=== PATIENT | female | born 1950 | race Caucasian/White ===

== ENCOUNTER 2024-04-28 12:52 | Emergency (ER) | payer OTHER ==
[~2024-04-28] VITALS: Ht 162.6 cm; Wt 57.8 kg
[2024-04-28 13:38] LABS: Basophils # (auto) 0 10 ^3/uL (0-0.2); Basophils % (auto) 0.3 % (0.0-2.0); Eosinophils # (auto) 0 10 ^3/uL (0-0.8); Eosinophils % (auto) 0.2 % (0.0-7.0); Hematocrit 39.4 % (36.0-46.0); Hemoglobin 12.5 g/dL (12.2-16.2); Lymphocytes # (auto) 1.9 10 ^3/uL (0.4-5.4); Lymphocytes % (auto) 23.5 % (10.0-50.0); Mean Corpuscular Hemoglobin 29.3 pg (28.0-32.0); Mean Corpuscular Hgb Conc. 31.7 g/dL (32.0-36.0); Mean Corpuscular Volume 92.5 fL (80.0-100.0); Monocytes # (auto) 0.6 10 ^3/uL (0-1.3); Monocytes % (auto) 6.7 % (0.0-12.0); Neutrophils # (auto) 5.7 10 ^3/uL (1.6-8.6); Neutrophils % (auto) 69.3 % (37.0-80.0); Nucleated Red Blood Cells % 0.3 %; Platelet Count (auto) 373 10^3/uL (140-450); Red Blood Cells 4.26 10^6/uL (4.0-5.20); Red Cell Distribution Width 20.5 % (11.8-14.3); White Blood Cell 8.3 10^3/uL (4.4-10.8)
[2024-04-28 13:53] LABS: Chloride 101 mmol/L (98-107); Potassium 4.5 mmol/L (3.5-5.1); Sodium 136 mmol/L (136-145)
[2024-04-28 13:54] LABS: Anion Gap 9 (5-15); Calcium 9.7 mg/dL (8.7-10.4); Carbon Dioxide 26 mmol/L (20-31)
[2024-04-28 13:59] LABS: BUN/Creatinine Ratio 24.4 (10.0-20.0); Blood Urea Nitrogen 21 mg/dL (9-23)
[2024-04-28 14:04] LABS: Glucose 118 mg/dL (74-106)
--- NOTE | 2024-04-28 14:08 | DVH ---
XY CHEST PORTABLE, HISTORY: sob COMPARISON: None None TECHNICAL DATA: 1 view of the chest was obtained. FINDINGS: Lines and tubes: There is a right chest portacatheter. Cardiomediastinal silhouette: Enlarged Pulmonary vasculature: normal Lung expansion: normal Lung airspace: Left upper lobe lung mass. Lung interstitium: normal Pleura: Small left pleural effusion. Pneumothorax: no Bones: Unremarkable Other: no IMPRESSION: Left upper lobe lung mass. Small left pleural effusion.
--- NOTE | 2024-04-28 14:36 | ECG ---
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
--- NOTE | 2024-04-28 15:11 | ED.PDOC ---
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 Hassan. Pt states she was advised she has fluid around her heart was told to come to the ED for further evaluation. Pt states she has been having increasing shortness of breath with noted clear and yellow phlegm and states she has been having left lower chest pain when taking deep breaths with associated pain radiating to her back. Pt is receiving immunotherapy at [facility] which she states was started 4 weeks ago. Pt states she had an adverse reaction to the immunotherapy, so treatment was temporarily stopped. Here patient is complaining of left lower chest pain radiating to the left lateral chest and back, shortness breath of breath and occasional retrosternal chest heaviness. She denies diaphoresis, palpitations, nausea, vomiting, fever, chills, dysuria, hematuria, headache or dizziness. Pt in the ED, has noted heart rate of 111 but otherwise has stable vitals with noted 02 sat of 97% on room air, temp of 98.0F, and BP of 115/81. Pt otherwise denies any other symptoms at this time. 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 COUNTRY History: Unknown Family History Family History: Reviewed,noncontributory to illness Social History Smoker: Non-Smoker Alcohol: Denies ETOH Use Drugs: Denies Drug Use Lives In: Home Constitutional: denies: chills, diaphoresis, fatigue, fever, malaise, sweats, weakness, others EENTM: denies: blurred vision, double vision, ear bleeding, ear discharge, ear drainage, ear pain, ear ringing, eye pain, eye redness, hearing loss, mouth pain, mouth swelling, nasal discharge, nose bleeding, nose congestion, nose pain, photophobia, tearing, throat pain, throat swelling, voice changes, others Respiratory: reports: SOB at rest, shortness of breath, SOB with excertion; denies: cough, hemoptysis, orthopnea, stridor, wheezing, others Cardiovascular: denies: chest pain, dizzy spells, diaphoresis, Dyspnea on exertion, edema, irregular heart beat, left arm pain, lightheadedness, palpitations, PND, syncope, others Gastrointestinal: denies: abdomen distended, abdominal pain, blood streaked bowels, constipated, diarrhea, dysphagia, difficulty swallowing, hematemesis, melena, nausea, poor appetite, poor fluid intake, rectal bleeding, rectal pain, vomiting, others Genitourinary: denies: abnormal vagina bleeding, burning, dyspareunia, dysuria, flank pain, frequency, hematuria, incontinence, pain, , vagina discharge, urgency, others Neurological: denies: dizziness, fainting, headache, left sided numbness, left sided weakness, numbness, paresthesia, pre-existing deficit, right sided numbness, right sided weakness, seizure, speech problems, tingling, tremors, weakness, others Musculoskeletal: reports: back pain; denies: gout, joint pain, joint swelling, muscle pain, muscle stiffness, neck pain, others Integumetry: denies: bruises, change in color, change in hair/nails, dryness, laceration, lesions, lumps, rash, wounds, others Allergic/Immunocompromised: denies: Difficulty Healing, Frequent Infections, Hives, Itching, others Hematologic/Lymphatic: denies: anemia, blood clots, easy bleeding, easy bruising, swollen glands, others Endocrine: denies: excessive hunger, excessive sweating, excessive thirst, excessive urination, flushing, intolerance to cold, intolerance to heat, unexplained weight gain, unexplained weight loss, others Psychiatric: denies: anxiety, bipolar disorder, depression, hopeless, panic disorder, schizophrenia, sleepless, suicidal, others All Other Systems: Reviewed and Negative Physical Exam General Appearance: No Apparent Distress, Thin, Other (Chronically ill- appearing) HEENT: Other (Pupils symmetric, moist mucous membranes) Neck: Full Range of Motion, Normal Inspection Respiratory: Chest Non-Tender, Decreased Breath Sounds (Left lung), No Accessory Muscle Use, No Respiratory Distress Cardiovascular: No Edema, No JVD, Regular Rate/Rhythm Breast Exam: Deferred Gastrointestinal: Non Tender, Soft Genitalia: Deferred Pelvic: Deferred Rectal: Deferred Extremities: Normal inspection, Normal range of motion, Non-tender, Pedal edema (Trace) Neurologic: Alert (Oriented x4), Normal Affect, Normal Mood, Other (Ambulatory without difficulty, no gross focal deficit) Cerebellar Function: NOT DONE Reflexes: NOT DONE Skin: Dry, Pallor, Warm Lymphatic: NOT DONE EKG EKG : Comments Sinus tach, rate 122, normal intervals, normal axis, low-voltage QRS in precordial leads, diffuse T-wave inversion with ST depression Was a procedure done? Was a procedure done?: No Differential Dx Differential Diagnosis: Bronchitis, Cardiogenic Shock, CHF, COPD, Dysrhythmia, Myocardial infarction, Pneumonia, Pneumothorax, Pulmonary Embolism, Respiratory Distress, Pharyngitis, URI Comments Pericardial effusion, pericarditis, ACS, WI, arrhythmia, pleural effusion, enlarging lung mass, sepsis, among others X-Ray, Labs, Meds, VS Vital Signs Date Time Temp Pulse Resp B/P (MAP) Pulse Ox O2 Delivery O2 Flow Rate FiO2 04/28/24 18:05 97 Room Air* 0 21 04/28/24 18:05 20 97 Room Air* 0 21 04/28/24 16:15 97.4 106 18 121/77 (92) 98 97.4 04/28/24 15:07 98.0 111 16 115/81 (92) 97 04/28/24 14:35 122 Lab Test 04/28/24 14:26 04/28/24 13:20 Range/Units Troponin I High Sensitivity 5 6 </=34 ng/L White Blood Count 8.3 4.4-10.8 10^3/uL Red Blood Count 4.26 4.0-5.20 10^6/uL Hemoglobin 12.5 12.2-16.2 g/dL Hematocrit 39.4 36.0-46.0 % Mean Corpuscular Volume 92.5 80.0-100.0 fL Mean Corpuscular Hemoglobin 29.3 28.0-32.0 pg Mean Corpuscular Hemoglobin Concent 31.7 L 32.0-36.0 g/dL Red Cell Distribution Width 20.5 H 11.8-14.3 % Platelet Count 373 140-450 10^3/uL Mean Platelet Volume 7.6 6.9-10.8 fL Neutrophils (%) (Auto) 69.3 37.0-80.0 % Lymphocytes (%) (Auto) 23.5 10.0-50.0 % Monocytes (%) (Auto) 6.7 0.0-12.0 % Eosinophils (%) (Auto) 0.2 0.0-7.0 % Basophils (%) (Auto) 0.3 0.0-2.0 % Neutrophils # (Auto) 5.7 1.6-8.6 10 ^3/uL Lymphocytes # (Auto) 1.9 0.4-5.4 10 ^3/uL Monocytes # (Auto) 0.6 0-1.3 10 ^3/uL Eosinophils # (Auto) 0 0-0.8 10 ^3/uL Basophils # (Auto) 0 0-0.2 10 ^3/uL Nucleated Red Blood Cells 0.3 % Sodium Level 136 136-145 mmol/L Potassium Level 4.5 3.5-5.1 mmol/L Chloride Level 101 98-107 mmol/L Carbon Dioxide Level 26 20-31 mmol/L Anion Gap 9 5-15 Blood Urea Nitrogen 21 9-23 mg/dL Creatinine 0.86 0.550-1.02 mg/dL Glomerular Filtration Rate Calc 71 >90 mL/min BUN/Creatinine Ratio 24.4 H 10.0-20.0 Serum Glucose 118 H 74-106 mg/dL Calcium Level 9.7 8.7-10.4 mg/dL B-Type Natriuretic Peptide 124.15 0-100 pg/mL Current Medications Medications (Trade) Dose Ordered Sig/Britton Route Start Time Stop Time Status Last Admin Albuterol (Ventolin Medneb) 5 mg ONCE ONCE NEB 04/28/24 14:30 04/28/24 15:23 DC 04/28/24 17:54 Ipratropium [place] (Atrovent Medneb) 0.5 mg ONCE ONCE NEB 04/28/24 14:30 04/28/24 15:23 DC 04/28/24 17:54 Sodium Chloride 1,000 ml @ 75 mls/hr [id number] ONCE IV 04/28/24 17:00 04/29/24 06:19 04/28/24 17:[address] [address] Ph: [phone] DIAGNOSTIC IMAGING Diagnostic Imaging Report : [id number] Signed PATIENT: SUKUMAR DANG ACCT: [id number] UNIT: [id number] : 1950 LOC: ER ROOM / BED: / AGE / SEX: 73 / F ADM STATUS: REG ER SERVICE 1302 ORDERING PHYSICIAN: FANNY CHRISTIANSON MD PROCEDURE(s): CXRP - CHEST PORTABLE REASON: sob ORDER NUMBER(s): [id number], ACCESSION NUMBER(s): [id number] XY CHEST PORTABLE, HISTORY: sob COMPARISON: None None TECHNICAL DATA: 1 view of the chest was obtained. FINDINGS: Lines and tubes: There is a right chest portacatheter. Cardiomediastinal silhouette: Enlarged Pulmonary vasculature: normal Lung expansion: normal Lung airspace: Left upper lobe lung mass. Lung interstitium: normal Pleura: Small left pleural effusion. Pneumothorax: no Bones: Unremarkable Other: no IMPRESSION: Left upper lobe lung mass. Small left pleural effusion. ATED BY: BRANDIN BETANCOURT MD DICTATED DATE/TIME: 04/28/241405 SIGNED BY: BRANDIN BETANCOURT MD SIGNED DATE/TIME: 04/28/24 140 CC: PROCEDURE(s): ECIDC - ECHO 2D MODE CARDIAC DOP REASON: PERICARDIAL EFFUSION ORDER NUMBER(s): [id number], ACCESSION NUMBER(s): [id number] APPROVED REPORT EXAM: LIMITED Two-dimensional and M-mode echocardiogram. Blood Pressure: 115/81 mmHg INDICATION Limited for Pericardial Effusion RISK FACTORS Height: 5'4", Weight: 127 Mitral Valve Mitral Mitral Stenosis E/A ratio 0.0 2D MVA cm2 Other Information Quality : Technically Limited Rhythm : Technically limited study due to patient position. Conclusion massive large circumferential pericardial effusion limited s tudy, full study done at dr lozada office LV function abnormal motion, lvef unreliable but likely >40% RV bounce, no severe compression noted large mass/ suspected tumor adjacent to LV on pericardial sac measuring almost 4.9 x 2.3 cm d/w ER and ish tax map technician gentry, and referring cards SIGNED BY: CHRISTINA ARREDONDO MD SIGNED DATE/TIME: 04/28/24 6757 X-Ray, Labs, Meds, VS Comment 73-year-old female with a history of lung CA and dyslipidemia referred by cardio logist for a possible pericardial effusion. Patient complains of left-sided lower chest pain radiating to the back, shortness a breath and intermittent retrosternal chest heaviness. Vitals remarkable for heart rate 122 Exam remarkable for diminished breath sounds on the left. No respiratory distress. Rhythm strip independently interpreted by me: Sinus tach, rate 122, no ectopy. Chest x-ray IMPRESSION: Left upper lobe lung mass. Small left pleural effusion. Echocardiogram: massive large circumferential pericardial effusion limited s midy, full study done at dr lozada office LV function abnormal motion, lvef unreliable but likely >40% RV bounce, no severe compression noted large mass/ suspected tumor adjacent to LV on pericardial sac measuring almost 4.9 x 2.3 cm CBC, basic metabolic panel, serial troponins and BNP unremarkable for any abnormality of acute significance Patient was evaluated by Dr. Arredondo in the ED, who recommended higher level of care transfer given tumor within pericardial sac and potential risk of recurrence or compression of the tumor within the sac onto the left ventricle after pericardiocentesis, or failed tap due to obstruction by the tumor. Patient was treated with the following in our ED: Albuterol 5 mg/Atrovent 0.5 mg nebulized, morphine 4 mg IV, Zofran 4 mg IV On re-evaluation, patient states pain has improved, vitals are stable. Plan is to transfer the patient for higher level of care, Cardiothoracic Services. Dr. Lin discussed the case with Dr. Masters, Cardiothoracic at [facility]. He agreed to see the patient for possible pericardial window. Patient will be transferred to [facility]. Time of 1ST Reevaluation: 15:40 Reevaluation 1ST: Unchanged Patient Education/Counseling: Diagnosis, Treatment Family Education/Counseling: No Family Present Departure 1 Departure Time of Disposition: 17:00 Impression: Primary Impression: Pericardial effusion Additional Impression: Neoplasm of pericardium Disposition: 02 SHORT TERM HOSPITAL Admit to: Tele Condition: Guarded Critical Care Note Critical Care Time?: Yes (45 min-critical care time only) Critical care comment: Critical care time including multiple bedside re-evaluations, review of lab and imaging studies, and discussion of the case with the consulting and accepting providers. Patient is high risk for hemodynamic and/or respiratory decompensation. Stability Stability form required: No Heart Score Heart Score: Heart Score Response (Comments) Value History Moderate Suspicious [address]-Deviation 2 Age >65 2 Risk Factors 1 or 2 risk factors 1 Troponin Normal limit 0 Total 6 I personally scribed for FANNY CHRISTIANSON MD ([facility]) on 04/28/24 at 15: 11. Electronically submitted by Hillary Martin ([facility]). FANNY CHRISTIANSON MD Apr 28, 2024 15:11
--- NOTE | 2024-04-28 16:46 | DVHINCON2 ---
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 pt saw her onc at [facility] yesterday and was not feeling well with immune therapy meds. Past Medical History reviewed Allergies: Coded Allergies: NO KNOWN ALLERGIES (Unverified , 04/28/24) Review of Systems 10 pt ros otherwise negative +sob Vital Signs Vital Signs Date Time Temp Pulse Resp B/P (MAP) Pulse Ox O2 Delivery O2 Flow Rate FiO2 04/28/24 16:15 97.4 106 18 121/77 (92) 98 97.4 Physical Exam nad s1 s2 tachycardic pt out in lobby limited exam Labs/Diagnostic Data Labs Test 04/28/24 14:26 04/28/24 13:20 Range/Units Troponin I High Sensitivity 5 </=34 ng/L White Blood Count 8.3 4.4-10.8 10^3/uL Red Blood Count 4.26 4.0-5.20 10^6/uL Hemoglobin 12.5 12.2-16.2 g/dL Hematocrit 39.4 36.0-46.0 % Mean Corpuscular Volume 92.5 80.0-100.0 fL Mean Corpuscular Hemoglobin 29.3 28.0-32.0 pg Mean Corpuscular Hemoglobin Concent 31.7 L 32.0-36.0 g/dL Red Cell Distribution Width 20.5 H 11.8-14.3 % Platelet Count 373 140-450 10^3/uL Mean Platelet Volume 7.6 6.9-10.8 fL Neutrophils (%) (Auto) 69.3 37.0-80.0 % Lymphocytes (%) (Auto) 23.5 10.0-50.0 % Monocytes (%) (Auto) 6.7 0.0-12.0 % Eosinophils (%) (Auto) 0.2 0.0-7.0 % Basophils (%) (Auto) 0.3 0.0-2.0 % Neutrophils # (Auto) 5.7 1.6-8.6 10 ^3/uL Lymphocytes # (Auto) 1.9 0.4-5.4 10 ^3/uL Monocytes # (Auto) 0.6 0-1.3 10 ^3/uL Eosinophils # (Auto) 0 0-0.8 10 ^3/uL Basophils # (Auto) 0 0-0.2 10 ^3/uL Nucleated Red Blood Cells 0.3 % Sodium Level 136 136-145 mmol/L Potassium Level 4.5 3.5-5.1 mmol/L Chloride Level 101 98-107 mmol/L Carbon Dioxide Level 26 20-31 mmol/L Anion Gap 9 5-15 Blood Urea Nitrogen 21 9-23 mg/dL Creatinine 0.86 0.550-1.02 mg/dL Glomerular Filtration Rate Calc 71 >90 mL/min BUN/Creatinine Ratio 24.4 H 10.0-20.0 Serum Glucose 118 H 74-106 mg/dL Calcium Level 9.7 8.7-10.4 mg/dL B-Type Natriuretic Peptide 124.15 0-100 pg/mL Assessment large pericardail effusion with tumor in pericardail sac tachycardia frailty metastatic sarcoma Plan/Recommendation i would recommend tx to higher level center given tumor within sac and potential risk of recurrence, or compression of very large tumor within sac onto LV after tap, or failed tap given tumor if pt decompensates (but pt is stable currently and told to come in) then we would have to try here recommend tx to ER and choice [facility] hospitalist IVF do not diurese pt Plan discussed with: Patient CHRISTINA ARREDONDO MD Apr 28, 2024 16:46
--- NOTE | 2024-04-28 16:59 | DVHSR ---
APPROVED REPORT EXAM: LIMITED Two-dimensional and M-mode echocardiogram. Blood Pressure: 115/81 mmHg INDICATION Limited for Pericardial Effusion RISK FACTORS Height: 5'4", Weight: 127 Mitral Valve MitralMitral Stenosis E/A ratio0.02D MVAcm2 Other Information Quality : Technically LimitedRhythm : Technically limited study due to patient position. Conclusion massive large circumferential pericardial effusion limited elías amaya, full study done at dr lozada office LV function abnormal motion, lvef unreliable but likely >40% RV bounce, no severe compression noted large mass/ suspected tumor adjacent to LV on pericardial sac measuring almost 4.9 x 2.3 cm d/w ER and ish metallurgical or materials technician gentry, and referring cards
[2024-04-28] MEDS: SODIUM CHLORIDE 0.9% 1,000 ML IV ONE (17:00)
[2024-04-28] MEDS ORDERED: oxyCODONE HCL 5MG TAB PO PRN (17:00)
[2024-04-28] MEDS: ALBUTEROL SULF 2.5 MG/0.5ML(0.5%) NEB SOLN ONE (17:54)
[2024-04-28] MEDS: IPRATROPIUM BROM 0.5 MG/2.5ML INH SOL NEB ONE (17:54)
[2024-04-28] MEDS: IPRATROPIUM BROM 0.5 MG/2.5ML INH SOL ONE (17:54)
[2024-04-28] MEDS: ALBUTEROL SULF 2.5 MG/0.5ML(0.5%) NEB SOLN NEB ONE (17:54)
[2024-04-28] MEDS: MORPHINE SULFATE 4 MG/ML SYR/VIAL IV ONE (19:38)
[2024-04-28] MEDS: ONDANSETRON HCL 4 MG/2 ML VIAL IV ONE (19:39)
[2024-04-28 19:43] VITALS: PULSE 88; RESP 16; O2SAT 97
[2024-04-28 23:27] VITALS: BP 122/86; PULSE 90; RESP 16; TEMP 98; O2SAT 97
== END 2024-04-28 23:35 | disposition short-term general hospital (02) ==
LOC: ER 12:52
DX: D49.89 Neoplasm of unspecified behavior of other specified sites (principal); I31.39 Other pericardial effusion (noninflammatory); E78.5 Hyperlipidemia, unspecified; Z90.89 Acquired absence of other organs; Z85.9 Personal history of malignant neoplasm, unspecified
CPT/HCPCS: 36415; 71045; 80048; 83880; 84484; 85025; 93005; 93306; 94640; 96361; 96374; 99291; J2270; J2405; J7030